=== PATIENT | female | born 1945 | race American Indian/Alaskan Native ===

== ENCOUNTER 2016-07-29 10:49 | Outpatient (CLI) | payer MEDICARE ==
--- NOTE | 2016-07-30 12:03 | Mammography Report ---
BILATERAL MAMMOGRAM: FINDINGS: The breasts are almost entirely fat (<25% glandular). No mass, distortion, suspicious calcification, or skin change is seen. No significant change compared to prior exam in September 2014. CAD was utilized. IMPRESSION: Negative mammogram. There is no mammographic evidence of malignancy. RECOMMENDATION: Follow-up per ACS guidelines. BI-RADS CATEGORY: 1 = Negative ACR BI-RADS MAMMOGRAPHIC CODES: 0 = Needs additional imaging evaluation; 1 = Negative; 2 = Benign; 3 = Probably benign; 4 = Suspicious; 5 = Malignant; 6 = Known biopsy-proven malignancy COMMENT: 1. Dense breast tissue, i.e., adenosis, fibrocystic changes, etc., may obscure an underlying neoplasm. 2. Approximately 10% of cancers are not detected with mammography. 3. A negative mammography report should not delay biopsy if a clinically suspicious mass is present. COMMENT: Patient follow-up letters are generated in [facility].
== END 2016-07-29 10:50 | disposition home or self-care (01) ==
LOC: MAMMO 10:49
PROVIDERS: ATTEND Family Medicine
DX: Z12.31 Encounter for screening mammogram for malignant neoplasm of breast (principal); E11.9 Type 2 diabetes mellitus without complications; I10 Essential (primary) hypertension; Z80.3 Family history of malignant neoplasm of breast; Z79.4 Long term (current) use of insulin
CPT/HCPCS: 77067; G0202

== ENCOUNTER 2016-09-15 09:29 | Emergency (ER) | payer MEDICARE ==
[2016-09-15 10:21] LABS: Basophils % (Auto) 0.5 % (0.0-1.8); Hematocrit 34.9 % (30.3-42.9); Hemoglobin 11.3 gm/dl (10.1-14.3); Mean Corpuscular HGB Conc 32 % (30-34); Mean Corpuscular Hemoglobin 29 pg (28-32); Mean Corpuscular Volume 91 fl (79-97); Platelet Count 366 K/mm3 (140-440); Red Blood Count 3.84 M/mm3 (3.65-5.03); Red Cell Distribution Width 14.2 % (13.2-15.2); White Blood Count 13.4 K/mm3 (4.5-11.0)
[2016-09-15 10:30] LABS: INR 1.02 (0.87-1.13)
[2016-09-15 10:31] LABS: Partial Thromboplastin Time 36.6 Sec. (24.2-36.6)
[2016-09-15 10:43] LABS: Albumin 3.6 g/dL (3.9-5); Albumin/Globulin Ratio 0.8 %; Bilirubin,Total 0.6 mg/dL (0.1-1.2); Chloride 95.9 mmol/L (98-107); Potassium 4.2 mmol/L (3.6-5.0); Total Protein 8.1 g/dL (6.3-8.2)
[2016-09-15 10:48] LABS: Bacteria,Urine 4+ /HPF (Negative); Bilirubin,Urine NEG (Negative); Blood,Urine NEG (Negative); Ketones,Urine NEG (Negative); Leukocyte Esterase,Urine NEG (Negative); Mucus,Urine FEW /HPF; Nitrite,Urine NEG (Negative); Urobilinogen,Urine < 2.0 mg/dL (<2.0)
--- NOTE | 2016-09-15 11:23 | Cat Scan Report ---
CT OF THE ABDOMEN AND PELVIS WITHOUT CONTRAST HISTORY: Abdominal pain, abdominal incision rupture. TECHNIQUE: Helical CT without contrast. Sagittal and coronal reformatted images. FINDINGS: Previous ventral wall hernia repair changes are noted. Recurrent ventral wall hernias are identified along the superior, left lateral and inferior borders of the graft. There is a small defect containing fat along the superior border of the graft with a 2.1 cm neck. There is a small defect along the left lateral border of the graft with a 2.9 cm neck which contains fat and a small segment of colon. There is moderate induration and inflammation along the inferior border of the graft with a suspected recurrent hernia in this area. There also appears to be fluid and gas along the inferior border of the graft measuring 6.7 x 3.7 cm in axial plane. Gas is also identified near the umbilicus. This may represent an abscess or graft infection. A fistula could also be present. Correlate with the patient and consider further imaging with CT with IV and oral contrast. There are multiple calcified gallstones within the gallbladder measuring up to 1 cm. No biliary dilatation or inflammation. The liver, pancreas, spleen, kidneys and adrenal glands are unremarkable. No evidence for bowel obstruction or focal inflammation. The appendix is not confidently identified. Calcified uterine fibroid in the posterior wall the uterus measures 4.4 cm. The adnexa and bladder are unremarkable. IMPRESSION: Recurrent ventral wall hernias along the margins of the graft as outlined above. There appears to be an inflammatory process along the inferior border of the graft near the level of the umbilicus. There may be an abscess or evidence of graft infection in this area. Please correlate with the patient. Cholelithiasis. Uterine fibroid.
[2016-09-15] MEDS ORDERED: VANCOMYCIN/NS 1 GM/250 ML 1 GM/250 ML BAG IV ONE (17:44)
[2016-09-15] MEDS ORDERED: NACL 0.9% 1000 ML 1,000 ML IV ONE (17:46)
--- NOTE | 2016-09-15 17:48 | Emergency Department Report ---
- General Chief complaint: Puncture Wound Stated complaint: NAUSEA Source: patient Mode of arrival: Ambulatory Limitations: No Limitations - History of Present Illness MD complaint: abscess/boil -: Gradual, Sudden Quality: burning Consistency: constant Improves with: none Worsens with: none Context: none Associated symptoms: denies other symptoms Treatments Prior to Arrival: bandages - Related Data Home Medications Medication Instructions Recorded Confirmed Last Taken Diltiazem [Cardizem] 90 mg pe PO BID 11/15/12 11/04/15 11/18/15 05:20 Insulin NPH/Regular [NovoLIN 70/30] 20 units SUB-Q BID 11/15/12 11/04/15 Levothyroxine [Synthroid] 25 mcg PO QAM 11/15/12 11/04/15 11/18/15 05:20 Lisinopril [Zestril TAB] 40 mg PO QDAY 11/15/12 11/04/15 11/18/15 05:20 Furosemide 1 tab PO QDAY 06/25/15 11/04/15 11/17/15 Gabapentin 1 tab PO TID 06/25/15 11/04/15 11/17/15 Glimepiride 1 tab PO BID 06/25/15 11/04/15 11/17/15 AtorvaSTATin [Lipitor] 80 mg PO QDAY 11/04/15 11/04/15 11/17/15 Ergocalciferol [Vitamin D2] 1 cap PO QWEEK 11/04/15 11/18/15 2 Weeks Ago Colchicine 1 tab PO DAILY 11/18/15 11/18/15 11/17/15 Previous Rx's Medication Instructions Recorded Last Taken Type Cyclobenzaprine [Flexeril 10 MG 10 mg PO Q8H PRN #60 tablet 11/19/15 Unknown Rx TAB] HYDROcodone/APAP 5-325 [[place] 1 each PO Q6H PRN #30 tablet 11/19/15 Unknown Rx 5-325 mg TAB] Allergies Allergy/AdvReac Type Severity Reaction Status Date / Time iodine Allergy Severe Swelling Verified 06/24/15 11:20 Abscess Boil HPI - HPI Chief Complaint: Puncture Wound Stated Complaint: NAUSEA Duration: 3 Days Location: Abdomen Severity: Moderate History: No Fever, No Pain, No Purulent Drainage, No Numbness, No Foreign Body, No Previous History, No Insect Bite Home Medications: Home Medications Medication Instructions Recorded Confirmed Last Taken Diltiazem [Cardizem] 90 mg pe PO BID 11/15/12 11/04/15 11/18/15 05:20 Insulin NPH/Regular [NovoLIN 70/30] 20 units SUB-Q BID 11/15/12 11/04/15 Levothyroxine [Synthroid] 25 mcg PO QAM 11/15/12 11/04/15 11/18/15 05:20 Lisinopril [Zestril TAB] 40 mg PO QDAY 11/15/12 11/04/15 11/18/15 05:20 Furosemide 1 tab PO QDAY 06/25/15 11/04/15 11/17/15 Gabapentin 1 tab PO TID 06/25/15 11/04/15 11/17/15 Glimepiride 1 tab PO BID 06/25/15 11/04/15 11/17/15 AtorvaSTATin [Lipitor] 80 mg PO QDAY 11/04/15 11/04/15 11/17/15 Ergocalciferol [Vitamin D2] 1 cap PO QWEEK 11/04/15 11/18/15 2 Weeks Ago Colchicine 1 tab PO DAILY 11/18/15 11/18/15 11/17/15 Previous Rx's Medication Instructions Recorded Last Taken Type Cyclobenzaprine [Flexeril 10 MG 10 mg PO Q8H PRN #60 tablet 11/19/15 Unknown Rx TAB] HYDROcodone/APAP 5-325 [[place] 1 each PO Q6H PRN #30 tablet 11/19/15 Unknown Rx 5-325 mg TAB] Allergies/Adverse Reactions: Allergies Allergy/AdvReac Type Severity Reaction Status Date / Time iodine Allergy Severe Swelling Verified 06/24/15 11:20 ED Review of Systems ROS: Stated complaint: NAUSEA Other details as noted in HPI Constitutional: no symptoms reported Gastrointestinal: abdominal pain Skin: other (mild dehiscence of abdominal surgical scar) ED Past Medical Hx - Past Medical History Previous Medical History?: Yes Hx Hypertension: Yes (20YRS) Hx Diabetes: Yes (15YRS) Hx Renal Disease: Yes (Renal insufficiency) Hx Arthritis: Yes Hx Seizures: No Hx Asthma: No Hx COPD: No Hx HIV: No Additional medical history: thyroid - Surgical History Past Surgical History?: Yes Additional Surgical History: hernia repair x 3. x 2. d & c - Social History Smoking Status: Never Smoker Substance Use Type: Prescribed - Medications Home Medications: Home Medications Medication Instructions Recorded Confirmed Last Taken Type Diltiazem [Cardizem] 90 mg pe PO BID 11/15/12 11/04/15 11/18/15 05:20 History Insulin NPH/Regular [NovoLIN 70/30] 20 units SUB-Q BID 11/15/12 11/04/15 History Levothyroxine [Synthroid] 25 mcg PO QAM 11/15/12 11/04/15 11/18/15 05:20 History Lisinopril [Zestril TAB] 40 mg PO QDAY 11/15/12 11/04/15 11/18/15 05:20 History Furosemide 1 tab PO QDAY 06/25/15 11/04/15 11/17/15 History Gabapentin 1 tab PO TID 06/25/15 11/04/15 11/17/15 History Glimepiride 1 tab PO BID 06/25/15 11/04/15 11/17/15 History AtorvaSTATin [Lipitor] 80 mg PO QDAY 11/04/15 11/04/15 11/17/15 History Ergocalciferol [Vitamin D2] 1 cap PO QWEEK 11/04/15 11/18/15 2 Weeks Ago History Colchicine 1 tab PO DAILY 11/18/15 11/18/15 11/17/15 History Cyclobenzaprine [Flexeril 10 MG 10 mg PO Q8H PRN #60 tablet 11/19/15 Unknown Rx TAB] HYDROcodone/APAP 5-325 [[place] 1 each PO Q6H PRN #30 tablet 11/19/15 Unknown Rx 5-325 mg TAB] ED Physical Exam - General Limitations: No Limitations General appearance: alert - Head Head exam: Present: atraumatic - Eye Eye exam: Present: normal appearance Pupils: Present: normal accommodation - ENT ENT exam: Present: mucous membranes moist - Neck Neck exam: Present: normal inspection - Respiratory Respiratory exam: Present: normal lung sounds bilaterally - Cardiovascular Cardiovascular Exam: Present: regular rate, normal rhythm - GI/Abdominal GI/Abdominal exam: Present: soft, other (abdominal wall dehiscence of scars with mild drainage) ED Course Vital Signs 0709/15/16 09/15/16 09:41 17:21 17:25 Temperature 98.6 F 98.5 F Pulse Rate 105 H 113 H Respiratory 20 21 20 Rate Blood Pressure 166/78 Blood Pressure 198/92 [Right] O2 Sat by Pulse 98 100 Oximetry 09/15/16 09/15/16 17:31 17:46 Temperature Pulse Rate 101 H Respiratory 31 H 20 Rate Blood Pressure Blood Pressure [Right] O2 Sat by Pulse 99 98 Oximetry - Consultations Consultation #1: 09/15/16 19:[address] CORREA, SURGERY CLAY PROCESSING LABOURER, AND PATIENT'S SURGEON, HE RECOMMENDED PACKING WOUND AND D/C PATIENT WITH F/U IN HIS OFFICE TOMORROW AT 1145AM. ED Medical Decision Making - Lab Data Result diagrams: 09/15/16 10:03 09/15/16 10:03 Critical care attestation.: If time is entered above; I have spent that time in minutes in the direct care of this critically ill patient, excluding procedure time. ED Disposition Clinical Impression: Abscess Disposition: DC-09 OP ADMIT IP TO THIS HOSP Is pt being admited?: No Does the pt Need Aspirin: No Condition: Stable Referrals: WEST CORREA MD [Staff Physician] - 24 Hours (TOMORROW AT 1145)
[2016-09-15 20:15] VITALS: BP 132/82
== END 2016-09-15 20:14 | disposition admitted as inpatient to this hospital (09) ==
LOC: ED 09:29
DX: L02.211 Cutaneous abscess of abdominal wall (principal); I10 Essential (primary) hypertension; E11.9 Type 2 diabetes mellitus without complications; M19.90 Unspecified osteoarthritis, unspecified site; Z88.8 Allergy status to other drugs, medicaments and biological substances; Z79.4 Long term (current) use of insulin
CPT/HCPCS: 36415; 74176; 80053; 81001; 83690; 85025; 85610; 85730; 86850; 86900; 86901; 96365; 99284; J3370; J7030

== ENCOUNTER 2017-08-05 08:32 | Day surgery (SDC) | payer MEDICARE ==
[~2017-08-05 08:32] MED LIST: ANCEF/STERILE WATER 2 GM/20 ML 2 GM/20 ML SYRINGE IV NR; HEPARIN 10,000 UNITS/10 ML IV ONE; MARCAINE 0.5% INFILTRATI ONE; NACL 0.9% 1000 ML 1,000 ML IV SCH; NACL 0.9% 500 ML IV ONE; NACL 0.9% IR ONE; PAPAVERINE IV ONE; VERSED IV NR
[2017-08-05 09:51] LABS: Basophils # (Auto) 0.1 K/mm3 (0.0-0.1); Eosinophils # (Auto) 0.2 K/mm3 (0.0-0.4); Eosinophils % (Auto) 1.6 % (0.0-4.3); Hematocrit 29.3 % (30.3-42.9); Hemoglobin 9.3 gm/dl (10.1-14.3); Lymphocytes # (Auto) 1.3 K/mm3 (1.2-5.4); Lymphocytes % (Auto) 11.8 % (13.4-35.0); Mean Corpuscular HGB Conc 32 % (30-34); Mean Corpuscular Hemoglobin 30 pg (28-32); Mean Corpuscular Volume 96 fl (79-97); Monocytes # (Auto) 0.6 K/mm3 (0.0-0.8); Monocytes % (Auto) 5.6 % (0.0-7.3); Platelet Count 263 K/mm3 (140-440); Red Blood Count 3.07 M/mm3 (3.65-5.03); Red Cell Distribution Width 14.6 % (13.2-15.2)
[2017-08-05 10:04] LABS: Calcium 8.6 mg/dL (8.4-10.2)
--- NOTE | 2017-08-05 10:13 | Anesthesia Consultation ---
Anesthesia Consult and Med Hx Date of service: 08/05/17 - Airway Anesthetic Teeth Evaluation: Poor (missing upper incisors) ROM Head & Neck: Adequate Mental/Hyoid Distance: Adequate Mallampati Class: Class III Intubation Access Assessment: Probably Good - Pulmonary Exam CTA: Yes - Cardiac Exam Cardiac Exam: RRR - Pre-Operative Health Status ASA Pre-Surgery Classification: ASA3 Proposed Anesthetic Plan: General - Pulmonary Hx Smoking: No Hx Asthma: No COPD: No Hx Sleep Apnea: No - Cardiovascular System Hx Hypertension: Yes (. HL) Hx Coronary Artery Disease: No Hx Cardia Arrhythmia: Yes - Central Nervous System Hx Seizures: No CVA: No Hx Back Pain: Yes Hx Psychiatric Problems: No - Gastrointestinal Hx Gastroesophageal Reflux Disease: No - Endocrine Hx End Stage Renal Disease: Yes (dialysed yesterday.) Hx Insulin Dependent Diabetes: Yes Hx Thyroid Disease: No Hx Hypothyroidism: Yes - Hematic Hx Anemia: No - Other Systems Hx Cancer: No Hx Obesity: Yes (BMI=40.6) - Additional Comments Anesthesia Medical History Comments: OA, glaucoma
--- NOTE | 2017-08-05 10:14 | Anesthesia Day of Surgery ---
Anesthesia Day of Surgery - Day of Surgery Patient Examined: Yes Patient H&P Reviewed: Yes Patient is NPO: Yes
[2017-08-05] MEDS ORDERED: DIPRIVAN 10 MG/ML IV ONE (11:33)
[2017-08-05] MEDS ORDERED: MARCAINE 0.5% 30 ML INFILTRATI ONE (11:35)
[2017-08-05] MEDS ORDERED: HEPARIN 10,000 UNITS/10 ML ONE (11:35)
[2017-08-05] MEDS ORDERED: NACL 0.9% 500 ML 500 ML ONE (11:36)
[2017-08-05] MEDS ORDERED: NACL 0.9% 100 ML ONE (11:37)
[2017-08-05] MEDS ORDERED: XYLOCAINE 1% 20 mL ONE (11:37)
[2017-08-05] MEDS ORDERED: RIFADIN ONE (11:37)
[2017-08-05] MEDS ORDERED: XYLOCAINE MPF 2% ONE (11:41)
[2017-08-05] MEDS ORDERED: SUBLIMAZE ONE (12:11)
[2017-08-05] MEDS ORDERED: ePHEDrine 50 MG/5 ML-0.9% NACL IV ONE (12:43)
[2017-08-05] MEDS ORDERED: DECADRON ONE (13:24)
[2017-08-05] MEDS ORDERED: HEPARIN 10,000 UNITS/10 ML IV ONE (13:36)
[2017-08-05] MEDS ORDERED: MARCAINE 0.5% INFILTRATI ONE (13:36)
[2017-08-05] MEDS ORDERED: RIFADIN IV ONE (13:37)
[2017-08-05] MEDS ORDERED: NACL 0.9% IR ONE (13:37)
[2017-08-05] MEDS ORDERED: NACL 0.9% 500 ML IV ONE (13:37)
[2017-08-05] MEDS ORDERED: NACL 0.9% IV ONE (13:38)
[2017-08-05] MEDS ORDERED: ZOFRAN ONE (13:56)
[2017-08-05] MEDS ORDERED: ZOFRAN IV PRN (14:11)
[2017-08-05] MEDS ORDERED: SUBLIMAZE IV PRN (14:11)
[2017-08-05] MEDS ORDERED: TORADOL IV PRN (14:11)
--- NOTE | 2017-08-05 14:11 | Post Anesthesia Evaluation ---
- Post Anesthesia Evaluation Patient Participated: Yes Airway Patent: Yes Stable Respiratory Function: Yes Nausea/Vomiting: No Temp > 96.8F: Yes Pain Manageable: Yes Adequeate Hydration: Yes Anesthesia Complications: No
--- NOTE | 2017-08-05 14:12 | Short Stay Summary ---
Short Stay Documentation Date of service: 08/05/17 Narrative H&P: See H&P - History H&P: obtained from office - Allergies and Medications Current Medications: Allergies iodine Allergy (Severe, Verified 06/24/15 11:20) Swelling throat swelling Home Medications Medication Instructions Recorded Confirmed Last Taken Type Levothyroxine [Synthroid] 25 mcg PO QAM 11/15/12 08/05/17 08/05/17 07:30 History Lisinopril [Zestril TAB] 40 mg PO QDAY 11/15/12 08/05/17 08/05/17 07:30 History Furosemide 1 tab PO QDAY 06/25/15 08/05/17 08/04/17 History Gabapentin 1 tab PO BID 06/25/15 08/05/17 08/04/17 22:00 History AtorvaSTATin [Lipitor] 80 mg PO QDAY 11/04/15 08/05/17 08/04/17 17:00 History Ergocalciferol [Vitamin D2] 1 cap PO QWEEK 11/04/15 08/05/17 08/03/17 History Diltiazem HCl 45 mg PO BID 08/04/17 08/05/17 08/05/17 07:30 History Latanoprost 0.005% 1 drop OU DAILY 08/04/17 08/05/17 08/04/17 22:00 History cloNIDine [Catapres] 0.2 mg PO QHS 08/04/17 08/05/17 08/04/17 22:00 History Active Medications Cefazolin Sodium (Ancef/Sterile Water 2 Gm/20 Ml) 2 gm in 20 mls @ 80 mls/hr IV PREOP NR; Protocol Stop: 08/05/17 23:59 Sodium Chloride (Nacl 0.9% 1000 Ml) 1,000 mls @ 42 mls/hr IV DIRECT MARIAH Last Admin: 08/05/17 09:50 Dose: 42 mls/hr Sodium Chloride (Nacl 0.9% 1000 Ml) 1,000 mls @ 100 mls/hr IV DIRECT MARIAH Midazolam HCl (Versed) 2 mg IV PREOP NR Stop: 08/05/17 23:59 Last Admin: 08/05/17 11:55 Dose: 2 mg - Brief post op/procedure progress note Date of procedure: 08/05/17 Pre-op diagnosis: Chronic Renal Insufficiency Post-op diagnosis: same Procedure: Creation of Left Brachial Artery Axillary Vein AV Graft with 5 mm Bovine Graft Anesthesia: AURELIOA Surgeon: AIDA KELLER Estimated blood loss: minimal Pathology: none Condition: stable - Disposition Condition at discharge: Good Disposition: DC-01 TO HOME OR SELFCARE Short Stay Discharge Plan Activity: other (no heavy lifting with left arm) Wound: open to air, keep clean and dry, other (okay to wash the wound with soap and water but do not soak in water) Follow up with: AIDA KELLER MD [Staff Physician] - 14 Days Prescriptions: HYDROcodone/APAP 7.5-325 [[place] 7.5/325] 1 each PO Q6HR PRN #40 tablet PRN Reason: Pain
--- NOTE | 2017-08-05 14:14 | Operative Report ---
Operative Report Operative Report: Date of procedure: 08/05/2017 Pre-operative diagnosis: Chronic Renal Insufficiency Post-operative diagnosis: Same Procedure(s): 1. Creation of Left Brachial Artery to Axillary Vein AV Graft with 5 mm Bovine Graft Surgeon: Leonides Hess MD Network Communications Engineer: None Anesthesia: General Endotracheal Anesthesia EBL: Minimal Counts: Correct Complications: None Condition: Stable Findings: Successful Creation of Left Arm AV Graft Specimen: None Indication: The patient is a 72-year-old female with a history of chronic renal insufficiency was not yet on hemodialysis however it is anticipated that she will require hemodialysis within the next several months. She had a venous mapping that demonstrated she is not a candidate for creation of a AV fistula so she requires creation of an AV graft. She was given the risks, benefits, and alternative procedures and consented to the procedure. Description of Procedure: The patient was brought to the operating room and laid in supine position after general endotracheal anesthesia was achieved the left arm was prepped and draped in normal sterile fashion. A longitudinal incision was made on the medial aspect of the arm just proximal to the antecubital crease and carried down to the brachial artery using sharp dissection. The brachial artery was dissected out circumferentially both proximally and distally and controlled with vessel loops. A second incision was created in longitudinal fashion on the medial aspect of the arm just distal to the axillary crease and carried down to the axillary vein using sharp dissection. Axillary vein was dissected out circumferentially and controlled with a vessel loop. I then used a Mayra- Wick tunneler to tunnel from the brachial artery incision to the axillary vein incision and then put an 5 mm bovine through the tunnel. I infused with heparinized saline to ensure that it was not twisted or kinked. I put the brachial artery vessel loops on tension controlling the flow and then created an arteriotomy using an 11 blade and Antonio scissors. I beveled the graft and created an end-to-side anastomosis using 6-0 Prolene running fashion. I clamped the graft just proximal to the anastomosis and then released the vessel loops restoring flow in the brachial artery. I placed quick clot in incision to achieve hemostasis. I cut the proximal end of the graft to the appropriate length and beveled the graft in preparation for a venous anastomosis. I controlled the axillary vein a Satinsky clamp and created a venotomy using an 11 blade and Antonio scissors. I created an end to side anastomosis using a 6-0 Prolene in running fashion. Prior to completing the anastomosis I flushed the graft to ensure there was no thrombus and then completed the anastamosis. I released all clamps allowing flow into the AV graft which had an excellent thrill. I packed the wound with quick clot to achieve hemostasis. I anesthetized both wounds with Marcaine and then closed both wounds in 2 layers using 3-0 Vicryl in running fashion in the deep dermal layer and 4-0 Monocryl in running fashion the subcuticular layer. I dressed both wounds with Surgicel. The patient tolerated the procedure well all sponge needle and instrument counts were correct the patient was taken to recovery in stable condition.
[2017-08-05] MEDS ORDERED: LACTATED RINGERS 1,000 ML IV SCH (15:00)
[2017-08-05 16:53] VITALS: BP 148/70
== END 2017-08-05 16:30 | disposition home or self-care (01) ==
LOC: OR 08:32
PROVIDERS: ATTEND Surgery Vascular Surgery
DX: E11.22 Type 2 diabetes mellitus with diabetic chronic kidney disease (principal); I12.0 Hypertensive chronic kidney disease with stage 5 chronic kidney disease or end stage renal disease; N18.6 End stage renal disease; E11.39 Type 2 diabetes mellitus with other diabetic ophthalmic complication; H40.9 Unspecified glaucoma; E78.5 Hyperlipidemia, unspecified; E03.9 Hypothyroidism, unspecified; E66.9 Obesity, unspecified; Z68.41 Body mass index [BMI] 40.0-44.9, adult; M19.90 Unspecified osteoarthritis, unspecified site
CPT/HCPCS: 36415; 36830; 80048; 82962; 85025; C1757; C1768; J0690; J1100; J1644; J2250; J2405; J2704; J3010; J3490; J7030; J7040; J2440

== ENCOUNTER 2017-09-23 11:06 | Day surgery (SDC) | payer MEDICARE ==
[~2017-09-23 11:06] MED LIST changes: -HEPARIN 10,000 UNITS/10 ML IV ONE; -MARCAINE 0.5% INFILTRATI ONE; -NACL 0.9% 500 ML IV ONE; -NACL 0.9% IR ONE; -PAPAVERINE IV ONE; -VERSED IV NR
--- NOTE | 2017-09-23 11:40 | Anesthesia Consultation ---
Anesthesia Consult and Med Hx Date of service: 09/23/17 - Airway Anesthetic Teeth Evaluation: Poor ROM Head & Neck: Adequate Mental/Hyoid Distance: Adequate Mallampati Class: Class II Intubation Access Assessment: Probably Good - Pulmonary Exam CTA: Yes - Cardiac Exam Cardiac Exam: RRR - Pre-Operative Health Status ASA Pre-Surgery Classification: ASA4 Proposed Anesthetic Plan: General (No GAC, No FHAC) - Pulmonary Hx Smoking: No Hx Asthma: No COPD: No Hx Sleep Apnea: No - Cardiovascular System Hx Hypertension: Yes (. HL) Hx Coronary Artery Disease: No Hx Cardia Arrhythmia: Yes - Central Nervous System Hx Seizures: No CVA: No Hx Back Pain: Yes Hx Psychiatric Problems: No - Gastrointestinal Hx Gastroesophageal Reflux Disease: No - Endocrine Hx Renal Disease: Yes (Renal insufficiency) Hx End Stage Renal Disease: Yes (dialysed yesterday.) Hx Insulin Dependent Diabetes: Yes Hx Thyroid Disease: No Hx Hypothyroidism: Yes Hx Hyperthyroidism: Yes (10 YRS) - Hematic Hx Anemia: No Hx Sickle Cell Disease: No - Other Systems Hx Alcohol Use: No Hx Substance Use: No Hx Cancer: No Hx Obesity: Yes (BMI=40.6)
[2017-09-23] MEDS ORDERED: HEPARIN/NS 5000 UNIT/500ML(CATH LAB) 1,000 ML IR ONE (12:34)
[2017-09-23] MEDS ORDERED: HEPARIN 10,000 UNITS/10 ML ONE (12:34)
[2017-09-23] MEDS ORDERED: ANCEF/STERILE WATER 2 GM/20 ML 2 GM/20 ML SYRINGE IV ONE (12:36)
[2017-09-23 12:37] LABS: Basophils # (Auto) 0.1 K/mm3 (0.0-0.1); Basophils % (Auto) 1.1 % (0.0-1.8); Eosinophils # (Auto) 0.1 K/mm3 (0.0-0.4); Eosinophils % (Auto) 0.9 % (0.0-4.3); Hematocrit 38.4 % (30.3-42.9); Hemoglobin 12.5 gm/dl (10.1-14.3); Lymphocytes # (Auto) 0.8 K/mm3 (1.2-5.4); Lymphocytes % (Auto) 12.2 % (13.4-35.0); Mean Corpuscular HGB Conc 33 % (30-34); Mean Corpuscular Hemoglobin 32 pg (28-32); Mean Corpuscular Volume 98 fl (79-97); Monocytes # (Auto) 0.6 K/mm3 (0.0-0.8); Monocytes % (Auto) 8.3 % (0.0-7.3); Platelet Count 236 K/mm3 (140-440); Red Blood Count 3.92 M/mm3 (3.65-5.03); Red Cell Distribution Width 17.1 % (13.2-15.2)
[2017-09-23 12:47] LABS: INR 1.02 (0.87-1.13)
[2017-09-23 12:52] LABS: Calcium 8.7 mg/dL (8.4-10.2)
[2017-09-23] MEDS ORDERED: SUBLIMAZE ONE (13:36)
[2017-09-23] MEDS ORDERED: NACL 0.9% 500 ML 500 ML ONE (13:36)
[2017-09-23] MEDS ORDERED: CATHFLO ONE ×2 (13:56→14:45)
[2017-09-23] MEDS: VERSED ONE ×2 (13:57→14:52)
[2017-09-23] MEDS: XYLOCAINE 2% INFILTRATI ONE ×2 (14:04→14:29)
[2017-09-23] MEDS ORDERED: HEPARIN/NS 5000 UNIT/500ML(CATH LAB) 500 ML IR ONE (14:43)
--- NOTE | 2017-09-23 15:30 | Short Stay Summary ---
Short Stay Documentation Date of service: 09/23/17 Narrative H&P: See H&P - History H&P: obtained from office - Allergies and Medications Current Medications: Allergies iodine Allergy (Severe, Verified 06/24/15 11:20) Swelling throat swelling Home Medications Medication Instructions Recorded Confirmed Last Taken Type Levothyroxine [Synthroid] 25 mcg PO QAM 11/15/12 09/23/17 09/23/17 History 25mcg Lisinopril [Zestril TAB] 40 mg PO QDAY 11/15/12 09/23/17 09/22/17 History 40mg Furosemide 1 tab PO QDAY 06/25/15 09/23/17 09/23/17 History 1 Gabapentin 1 tab PO BID 06/25/15 09/23/17 09/23/17 History 100mg AtorvaSTATin [Lipitor] 80 mg PO QDAY 11/04/15 09/23/17 09/23/17 History 80mg Ergocalciferol [Vitamin D2] 1 cap PO QWEEK 11/04/15 09/23/17 09/21/17 History 1 Diltiazem HCl 45 mg PO BID 08/04/17 09/23/17 09/23/17 History 45mg Latanoprost 0.005% 1 drop OU DAILY 08/04/17 09/23/17 09/22/17 History 1 cloNIDine [Catapres] 0.2 mg PO QHS 08/04/17 09/23/17 09/22/17 History 0.2mg HYDROcodone/APAP 7.5-325 [[place] 1 each PO Q6HR PRN #40 tablet 08/05/17 09/23/17 09/23/17 Rx 7.5/325] 1 Apixaban [Eliquis] 2.5 mg PO BID 09/23/17 09/23/17 09/23/17 History 2.5mg Active Medications Cefazolin Sodium (Ancef/Sterile Water 2 Gm/20 Ml) 2 gm in 20 mls @ 80 mls/hr IV PREOP NR; Protocol Stop: 09/23/17 23:59 Sodium Chloride (Nacl 0.9% 1000 Ml) 1,000 mls @ 42 mls/hr IV DIRECT MARIAH - Brief post op/procedure progress note Date of procedure: 09/23/17 Pre-op diagnosis: Complications of Dialysis Access Post-op diagnosis: same Procedure: 1. Access Left AVG with 7 Iranian Sheath Venous 2. Access Left AVG with 6 Iranian Sheath Arterial 3. Fistulagram with Central Venogram 4. Percutaneous Pharmaco-Mechanical Thrombectomy of Left AVG with TPA and Trertolla 5. Angioplasty and Stent of Left AVG with 7 x 4 Balloon and 7 x 5 cm Viabahn Stent Graft 6. Angioplasty of Left Brachial Artery with 5 x 80 INPAct Drug-Coated Balloon 7. Percutaneous Pharmaco-Mechanical Thrombectomy of Left Ulnar Artery with TPA and Angiojet Catheter 8. Radiologic Supervision with Interpretation Anesthesia: local, other (IV Sedation) Surgeon: AIDA KELLER Estimated blood loss: minimal Pathology: none Condition: stable - Disposition Condition at discharge: Good Disposition: DC-01 TO HOME OR SELFCARE Short Stay Discharge Plan Activity: no restrictions Wound: open to air, keep clean and dry
--- NOTE | 2017-09-23 15:35 | Operative Report ---
Operative Report Operative Report: Date of Procedure: 09/23/2017 Pre-operative Diagnosis: Complications of Dialysis Access Post-operative Diagnosis: Same Procedure(s): 1. Access Left AVG with 7 Kenyan Sheath Venous 2. Access Left AVG with 6 Kenyan Sheath Arterial 3. Fistulagram with Central Venogram 4. Percutaneous Pharmaco-Mechanical Thrombectomy of Left AVG with TPA and Trertolla 5. Angioplasty and Stent of Left AVG with 7 x 4 Balloon and 7 x 5 cm Viabahn Stent Graft 6. Angioplasty of Left Brachial Artery with 5 x 80 INPAct Drug-Coated Balloon 7. Percutaneous Pharmaco-Mechanical Thrombectomy of Left Ulnar Artery with TPA and Angiojet Catheter 8. Radiologic Supervision with Interpretation Surgeon: Leonides Hess M.D. 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 The patient also had 40% stenosis of her brachial artery, just distal to the arterial anastamosis of her AVG, and began complaining of hand pain once her graft was patent. Thrombus embolized to her ulnar artery requiring embolectomy. At the completion of the procedure the graft was patent without residual thrombus or flow limiting stenosis. There was less that 15% residual stenosis in the brachial artery. There was no residual thrombus in the ulnar artery. Specimen: None Indication: The patient in a 72 year old female who had previous creation of a left arm arteriovenous graft that thrombosed shortly after its creation. She has had previous intervention however the graft has never been used for access. She returns because the graft is again thrombosed and she requires intervention. She was given the risk, benefits, and alternative procedures, and consented to the procedure. Description of Procedure: The patient was brought into the cathlab and laid in supine position. After she was adequately sedated, her lefty arm was prepped and draped in usual sterile fashion. After anesthesizing the skin with 2% lidocaine, I used an 11 blade to make a small cosmo in the skin and used micro puncture technique to access the graft towards the venous outflow. I advanced a 0.035 J wire and the inserted a 7 Kenyan sheath. I fistulagram demostrated the graft was thrombosed. I sytemically heperainzed the patients at this point. I used a vertebral catheter and a 0.035 [place] wire to traverse the occluded stent and enter the central venous system. Venogram was performed and demonstrated widely patent vessels. I removed the wire injected 6 mg of TPA. I allowed this to dwell for approximately 10 minutes because the graft had been occluded for approximately 1 month. I inserted the Trertolla and performed percutaneous mechanical thrombectomy. I aspirated the thrombus and performed a fistulagram that revealed 80% stenosis in the axillary vein at the edge of a previously placed stent as well as stenosis within that stent and approimately 70% stenosis on the graft side of the stent. I performed angioplasty with a 7 x 40 balloon and all lesion appeared widely patent except the lesion on the graft side which remaind at 50% despite an additional prolonged inflation. I treated this with a 7 x 5 cm Viabahn Stent graft that was postdilated with the 7 x 4 balloon. The follow up result was less than 10% residual stenosis. I anesthesized the skin and used micropunture technique to access the graft towards the arterial inflow. I placed a 6 Kenyan sheath by Seldinger Technique. I advanced the [place] wire and vertebral catheter into the proximal brachial artery and performed an arteriogram with the previously described findings. I used the Trertolla to morcellate the thrombus and then aspirated the thrombus. The patient began complaining of significant hand pain. Arteriogram revealed severe angiographic steal. I used the glide wire and vertebral catheter to advance into the distal brachial artery and used a 5 x 80 INPact Drug-Coated balloon to treat the stenosis in the distal brachial artery. After prolonged inflation the following angiogram revealed less that 15% residual stenosis and the patient had immediate improvement in her hand complaint however there was evidence of thrombus in the ulnar artery. I advanced a vertebral catheter over the [place] wire and exchanged the [place] wire for a 0.014 [place] wire. I advanced this into the ulnar artery and injected 4 mg of TPA. In then used the angiojet catheter to aspirate the thrombus. Follow up angiogram revealed complete resolution of the thrombus. I removed all catheters, wires, and sheaths and used 4-0 Chromic in purse-string fashion to close the entry sites. The sounds were then closed with Dermabond. The patient tolerated the procedure well. All sponge, needle, and instrument counts were correct. The patient was taken to the recovery area in stable condition.
[2017-09-23 16:02] VITALS: BP 147/55
== END 2017-09-23 16:15 | disposition home or self-care (01) ==
LOC: CATHLABREC 11:06
PROVIDERS: ATTEND Surgery Vascular Surgery
DX: T82.868A Thrombosis due to vascular prosthetic devices, implants and grafts, initial encounter (principal); T82.858A Stenosis of other vascular prosthetic devices, implants and grafts, initial encounter; E11.22 Type 2 diabetes mellitus with diabetic chronic kidney disease; I12.0 Hypertensive chronic kidney disease with stage 5 chronic kidney disease or end stage renal disease; N18.6 End stage renal disease; E78.5 Hyperlipidemia, unspecified; E89.0 Postprocedural hypothyroidism; E66.9 Obesity, unspecified; Z68.41 Body mass index [BMI] 40.0-44.9, adult; Z79.01 Long term (current) use of anticoagulants; Z79.899 Other long term (current) drug therapy; Z91.041 Radiographic dye allergy status; Y83.2 Surgical operation with anastomosis, bypass or graft as the cause of abnormal reaction of the patient, or of later complication, without mention of misadventure at the time of the procedure
CPT/HCPCS: 36415; 36906; 80048; 85025; 85610; 85730; C1725; C1757; C1769; C1874; C1894; C2623; J0690; J1644; J2250; J2997; J3010; J7040; Q9967